=== PATIENT | male | born 1995 | race American Indian/Alaskan Native ===

== ENCOUNTER 2019-01-25 08:29 | Emergency (ER) | payer SELFPAY ==
[2019-01-25 08:46] VITALS: BP 124/72
--- NOTE | 2019-01-25 09:46 | Emergency Department Report ---
ED ENT HPI - General Chief complaint: Dental/Oral Stated complaint: RT SIDE TOOTHACHE/HEADACHE PAIN Time Seen by Provider: 01/25/19 09:32 Source: patient Mode of arrival: Ambulatory Limitations: No Limitations - History of Present Illness Initial comments: 23-year-old -[place] male with a past medical medical history of recurrent dentalgia secondary to diffuse dental caries presents emergency department complaining of pain to the right upper tooth which radiates up to his head causes pain. Pain is worse when he eats and chews and spontaneously resolves. Currently states the pain has improved to a 0 of 10, and just requests a work note to return to work report. No odynophagia or dysphagia, reports no fever, chills, sweats. No chest pain or palpitations. No nausea or vomiting MD complaint: tooth pain -: Gradual, month(s) Location: tooth # Severity: moderate (when Pain is present it is moderate in throbbing) Quality: aching Consistency: intermittent Improves with: none Worsens with: none Context- Dental: history of dental caries Associated Symptoms: toothache. denies: pain with swallowing, sore throat - Related Data Previous Rx's Medication Instructions Recorded Last Taken Type Chlorhexidine Mouthwash [Peridex] 15 ml MM BID #420 bottle 01/25/19 Unknown Rx Ketorolac [Toradol] 10 mg PO Q8HR PRN #10 tablet 01/25/19 Unknown Rx Allergies Allergy/AdvReac Type Severity Reaction Status Date / Time No Known Allergies Allergy Unverified 01/25/19 08:32 ED Dental HPI - General Chief complaint: Dental/Oral Stated complaint: RT SIDE TOOTHACHE/HEADACHE PAIN Time Seen by Provider: 01/25/19 09:32 Source: patient Mode of arrival: Ambulatory Limitations: No Limitations - Related Data Previous Rx's Medication Instructions Recorded Last Taken Type Chlorhexidine Mouthwash [Peridex] 15 ml MM BID #420 bottle 01/25/19 Unknown Rx Ketorolac [Toradol] 10 mg PO Q8HR PRN #10 tablet 01/25/19 Unknown Rx Allergies Allergy/AdvReac Type Severity Reaction Status Date / Time No Known Allergies Allergy Unverified 01/25/19 08:32 ED Review of Systems ROS: Stated complaint: RT SIDE TOOTHACHE/HEADACHE PAIN Other details as noted in HPI Comment: All other systems reviewed and negative ED Past Medical Hx - Past Medical History Previous Medical History?: No - Surgical History Past Surgical History?: No - Social History Smoking Status: Never Smoker Substance Use Type: None - Medications Home Medications: Home Medications Medication Instructions Recorded Confirmed Last Taken Type Chlorhexidine Mouthwash [Peridex] 15 ml MM BID #420 bottle 01/25/19 Unknown Rx Ketorolac [Toradol] 10 mg PO Q8HR PRN #10 tablet 01/25/19 Unknown Rx ED Physical Exam - General Limitations: No Limitations General appearance: alert, in no apparent distress - Head Head exam: Present: atraumatic, normocephalic - Eye Eye exam: Present: normal appearance - ENT ENT exam: Present: mucous membranes moist, other (diffuse dental caries with severe erosions to tooth number 10/16/2013 22 on and 30. Common uvula are midline. Airway is patent. No exudate.) - Neck Neck exam: Present: normal inspection, full ROM - Respiratory Respiratory exam: Present: normal lung sounds bilaterally. Absent: respiratory distress - Cardiovascular Cardiovascular Exam: Present: regular rate, normal rhythm. Absent: systolic murmur, diastolic murmur, rubs, gallop - GI/Abdominal GI/Abdominal exam: Present: soft, normal bowel sounds - Rectal Rectal exam: Present: deferred - Extremities Exam Extremities exam: Present: normal inspection - Back Exam Back exam: Present: normal inspection - Neurological Exam Neurological exam: Present: alert, oriented X3, CN II-XII intact - Psychiatric Psychiatric exam: Present: normal affect, normal mood - Skin Skin exam: Present: warm, dry, intact, normal color. Absent: rash ED Course Vital Signs 01/25/19 08:45 Temperature 98.4 F Pulse Rate 56 L Respiratory 18 Rate Blood Pressure 124/72 O2 Sat by Pulse 100 Oximetry Critical care attestation.: If time is entered above; I have spent that time in minutes in the direct care of this critically ill patient, excluding procedure time. ED Disposition Clinical Impression: Dentalgia Disposition: DC-01 TO HOME OR SELFCARE Is pt being admited?: No Does the pt Need Aspirin: No Condition: Stable Instructions: Dental Caries (ED), Toothache (ED) Prescriptions: Chlorhexidine Mouthwash [Peridex] 15 ml MM BID #420 bottle Ketorolac [Toradol] 10 mg PO Q8HR PRN #10 tablet PRN Reason: Pain Referrals: [facility] [Outside] - 3-5 Days Forms: Work/School Release Form(ED)
== END 2019-01-25 09:53 | disposition home or self-care (01) ==
LOC: ED 08:29
DX: K08.89 Other specified disorders of teeth and supporting structures (principal)
CPT/HCPCS: 99282